=== PATIENT | male | born 1945 | race Caucasian/White ===

== ENCOUNTER 2017-05-09 17:07 | Emergency (ER) | payer MEDICARE, BC ==
[2017-05-09 17:24] VITALS: BP 158/78
--- NOTE | 2017-05-09 18:05 | UC ---
Angel Wright Nikita, scribed for Kristen Ellington MD on 05/09/17 at 1752 . Laceration HPI - HPI Summary HPI Summary: This patient is a 71 year old M presenting to [facility] with a chief complaint of 2 lacerations on the top of his head since 164. The pt ran into a chandelier which shattered the glass dome that covers the bulb. The pt is worried about leftover glass pieces in the lacerations. The CC is described as burning. The patient rates the pain 2/10 in severity. Symptoms aggravated by nothing. Symptoms alleviated by nothing. Patient reports profuse bleeding and feeling the surface tension from the lacerations. Patient denies dizziness, vision changes, RUVALCABA, or LOC. Pts tetanus is UTD. - History Of Current Complaint Chief Complaint: UCSkin Stated Complaint: HEAD LAC Time Seen by Provider: 05/09/17 17:41 Hx Obtained From: Patient Laceration Location: Head - top of the head Mechanism Of Injury: Sharp Trauma Onset/Duration: Lasting Hours, Still Present Severity: Mild Pain Intensity: 2 Pain Scale Used: 0-10 Numeric Aggravating Factors: Other: - Patient reports profuse bleeding and feeling the surface tension from the lacerations. Patient denies dizziness, vision changes , RUVALCABA, or LOC. - Allergies/Home Medications Allergies/Adverse Reactions: Allergies Allergy/AdvReac Type Severity Reaction Status Date / Time No Known Allergies Allergy Verified 05/09/17 17:25 Home Medications: Home Medications Aspirin [Aspirin Adult Low Dose 81 MG] 81 mg PO DAILY 05/09/17 [History Confirmed 05/09/17] PMH/Surg Hx/FS Hx/Imm Hx Endocrine History: Diabetes Cardiovascular History: Hypertension, Atrial Fibrillation, Other - cardiomyopathy Other Cardiovascular History: cardiomyopathy Respiratory History: COPD - Surgical History Surgical History: Yes Surgery Procedure, Year, and Place: hernia 1997 - Family History Known Family History: Positive: Respiratory Disease - father CA lung, Other Family History: lung CA, leukemia, intestinal fistula, cardiomyopathy - Social History Alcohol Use: Occasionally Substance Use Type: None Smoking Status (MU): Never Smoked Tobacco Review of Systems Constitutional: Negative Skin: Other - 2 lacerations on top of the head, profuse bleeding, feeling the "surface tension" from the lacerations Eyes: Negative ENT: Negative Respiratory: Negative Cardiovascular: Negative Gastrointestinal: Negative Genitourinary: Negative Motor: Negative Neurovascular: Negative Musculoskeletal: Negative Neurological: Other - denies RUVALCABA, LOC, dizziness Psychological: Negative All Other Systems Reviewed And Are Negative: Yes Physical Exam Triage Information Reviewed: Yes Appearance: Well-Appearing, No Pain Distress, Obese Vital Signs: Initial Vital Signs Temp 98.4 F 05/09/17 17:20 Pulse 63 05/09/17 17:20 Resp 18 05/09/17 17:20 BP 158/78 05/09/17 17:20 Pulse Ox 97 05/09/17 17:20 Eyes: Positive: Conjunctiva Clear ENT: Positive: Pharynx normal Neck: Positive: Supple, Nontender Respiratory: Positive: Lungs clear, Normal breath sounds Cardiovascular: Positive: RRR, No Murmur Skin Exam: Other - 2 superficial lacerations, one to the right frontal area is 2 cm, not full skin thickness, bleeding controlled. One on left vertex is 2.4 cm, slightly deeper, but not full thickness. Bleeding controlled, no FB seen Laceration Repair - Laceration Repair 1 Description: Linear : No Repair Necessary Laceration Size After Repair: Length (cm) - 2 cm 2 Description: Linear : No Repair Necessary Laceration Size After Repair: Length (cm) - 2.3 cm Closure Material: SteriStrips Laceration Course/Dx - Course/Dx Course Of Treatment: steristrips until peel, use light application of antibiotic ointment. - Differential Dx - Laceration/Wound Differental Diagnoses: Foreign Body, Laceration Provider Diagnoses: superficial lacerations x 2 Discharge - Discharge Plan Condition: Stable Disposition: HOME Patient Education Materials: Laceration (ED), Steristrips (ED) Additional Instructions: The risk of infection is low: monitor for any increase in redness or drainage. You can apply a light layer of topical antibiotic. You can peel away the steristrips once they begin to lift at the edges. The documentation as recorded by the Angel jones Nikita accurately reflects the service I personally performed and the decisions made by , Kristen Ellington MD.
== END 2017-05-09 18:18 | disposition home or self-care (01) ==
LOC: UCEAST 17:07
DX: S01.01XA Laceration without foreign body of scalp, initial encounter (principal); W25.XXXA Contact with sharp glass, initial encounter; Y93.9 Activity, unspecified; Y92.9 Unspecified place or not applicable; Y99.9 Unspecified external cause status; E11.9 Type 2 diabetes mellitus without complications; I10 Essential (primary) hypertension; I48.91 Unspecified atrial fibrillation; J44.9 Chronic obstructive pulmonary disease, unspecified
CPT/HCPCS: 99202; G0463